=== PATIENT | male | born 1970 | race Caucasian/White ===

== ENCOUNTER 2017-04-21 20:29 | Emergency (ER) | payer OTHER ==
[2017-04-21] MEDS ORDERED: Sodium Chloride 0.9% 2.5 ML Syringe FLUSH PRN (20:49)
[2017-04-21] MEDS ORDERED: Sodium Chloride 0.9% 10 ML Syringe FLUSH PRN (20:49)
[2017-04-21] MEDS ORDERED: Diphtheria,Pertussis(Acell),Tetanus Vaccine 0.5 ML Syringe IM ONE (20:50)
[2017-04-21] MEDS ORDERED: Ketorolac 30 MG/ML SDV IVPUSH ONE (20:50)
--- NOTE | 2017-04-21 20:55 | EDM.PDOC ---
ED HPI GENERAL MEDICAL PROBLEM - General Chief Complaint: Skin Complaint Stated Complaint: R LEG PAIN Time Seen by Provider: 04/21/17 20:38 - History of Present Illness INITIAL COMMENTS - FREE TEXT/NARRATIVE: HISTORY AND PHYSICAL: History of present illness: The patient is a 47-year-old male with no stated medical problems who presents with a 36 hour history of what he believes to be an ingrown hair at his right inner thigh that has since become infected and started draining. The patient states he noticed an irritation and redness in that area but it was not particular painful or swollen and he did not manipulate it. He says that it was gradually increasing in redness but there was no gross swelling or drainage.. Over the last 12 hours it has increased in redness and started draining this evening fluid and there is increased pain in the area. He has no bowel or bladder disturbances no pain or swelling in the testicles and no pain shooting down his right leg. He has no neurosensory changes in his leg and he has no other areas of redness or irritation on his skin elsewhere on the body. He has not had any systemic complaints such as fever abdominal pain nausea vomiting or diarrhea. He is unsure of his last tetanus shot. Review of systems: As per history of present illness and below otherwise all systems reviewed and negative. Past medical history: As per history of present illness and as reviewed below otherwise noncontributory. Surgical history: As per history of present illness and as reviewed below otherwise noncontributory. Social history: No reported history of drug or alcohol abuse. Family history: As per history of present illness and as reviewed below otherwise noncontributory. Physical exam: Gen.: Well-developed well-nourished man who is nontoxic and vital signs are noted by me. HEENT: Atraumatic, normocephalic, negative for conjunctival pallor or scleral icterus, mucous membranes moist, throat clear, neck supple, nontender, trachea midline. Lungs: Clear to auscultation, breath sounds equal bilaterally, chest nontender. Heart: S1S2, regular, negative for clicks, rubs, or JVD. Abdomen: Soft, nondistended, nontender. Negative for masses or hepatosplenomegaly. Negative for costovertebral tenderness. Pelvis: Stable nontender. Genitourinary: Testicles are descended bilaterally and there is no swelling erythema or tenderness of the testicles and the scrotal skin is without erythema or induration. In the perineum there is no extension of this erythema from the inner thigh and there are no lesions seen. At the inguinal area on the right side there is a diffuse area of well-defined pink erythema and warmth that measures approximately 20 x 18 cm extending down the medial thigh and more proximally right at the inguinal line there is a 9 x 5 area of hardened induration with a eschar-like wound at its center. There is no fluctuance in this area and no gross drainage appreciated on palpation but there is some drainage seen on the patient's underwear. This lesion is situated exactly where the edge of his underwear/briefs sit. There is some shoddy inguinal adenopathy the entire area is very well demarcated and does not extend proximally. It also does not extend medially into the perineum. There is tenderness with this exam but no gross drainage even with firm palpation. Rectal: Deferred. Extremities: Atraumatic, negative for cords or calf pain. Neurovascular unremarkable. Neuro: Awake, alert, oriented. Cranial nerves II through XII unremarkable. Cerebellum unremarkable. Motor and sensory unremarkable throughout. Exam nonfocal. Diagnostics: CBC soft tissue ultrasound of inner thigh Therapeutics: IV vancomycin Toradol Tdap Bruin I discussed all testing results with the patient and that the ultrasound did not reveal any fluid that needs drainage. I strongly advised him to continue monitoring the area and I have marked it with a surgical marker. I will give him prescriptions for Bactrim Bruin to use as needed and Bactroban and he would prefer to fill those at the pharmacy tomorrow. Impression: Right inguinal/inner thigh cellulitis with abscess and spontaneous drainage Definitive disposition and diagnosis as appropriate pending reevaluation and review of above. right thigh Pain Score (Numeric/FACES): 5 - Related Data Allergies Allergy/AdvReac Type Severity Reaction Status Date / Time No Known Allergies Allergy Verified 04/21/17 20:43 Home Meds: Home Meds . [No Known Home Meds] 07/17/14 [History] Past Medical History - Past Health History Medical/Surgical History: Denies Medical/Surgical History Social & Family History - Tobacco Use Smoking Status *Q: Current Every Day Smoker Years of Tobacco use: 30 - Alcohol Use Days Per Week of Alcohol Use: 1 Number of Drinks Per Day: 1 Total Drinks Per Week: 1 - Recreational Drug Use Recreational Drug Use: No ED ROS GENERAL - Review of Systems Review Of Systems: ROS reveals no pertinent complaints other than HPI. ED EXAM, SKIN/RASH Exam: See Below (See dictation) Course - Vital Signs Last Recorded V/S: Last Vital Signs Temp 36.3 C 04/21/17 20:44 Pulse 118 H 04/21/17 20:44 Resp 18 04/21/17 20:44 BP 128/75 04/21/17 20:44 Pulse Ox 94 L 04/21/17 20:44 - Orders/Labs/Meds Orders: Active Orders 24 hr Category Date Time Status Vaccines to be Administered [RC] PER UNIT ROUTINE Care 04/21/17 20:50 Active Extremity Non Vascular Rt [US] Stat Exams 04/21/17 20:49 Taken Acetaminophen/HYDROcodone [Bruin 325-7.5 MG] Med 04/21/17 21:44 Once 1 tab PO ONETIME ONE Sodium Chloride 0.9% [Saline Flush] Med 04/21/17 20:49 Active 10 ml FLUSH ASDIRECTED PRN Sodium Chloride 0.9% [Saline Flush] Med 04/21/17 20:49 Active 2.5 ml FLUSH ASDIRECTED PRN Vancomycin [Vancocin] 1 gm Med 04/21/17 20:50 Active Sodium Chloride 0.9% [Normal Saline] 250 ml IV ONETIME Saline Lock Insert [OM.PC] Stat Oth 04/21/17 20:49 Ordered Medication Orders Vancomycin HCl 1 gm/ Sodium (Chloride) 250 mls @ 250 mls/hr IV ONETIME ONE Stop: 04/21/17 21:49 Last Admin: 04/21/17 21:41 Dose: 250 mls/hr Sodium Chloride (Saline Flush) 10 ml FLUSH ASDIRECTED PRN PRN Reason: Keep Vein Open Last Admin: 04/21/17 21:41 Dose: 10 ml Sodium Chloride (Saline Flush) 2.5 ml FLUSH ASDIRECTED PRN PRN Reason: Keep Vein Open Last Admin: 04/21/17 21:41 Dose: 2.5 ml Labs: Laboratory Tests 04/21/17 Range/Units 20:58 WBC 10.67 (4.0-11.0) K/uL RBC 5.34 (4.50-5.90) M/uL Hgb 17.3 H (13.0-17.0) g/dL Hct 46.6 (38.0-50.0) % MCV 87.3 (80.0-98.0) fL MCH 32.4 H (27.0-32.0) pg MCHC 37.1 H (31.0-37.0) g/dL RDW Std Deviation 40.1 (28.0-62.0) fl RDW Coeff of Franky 13 (11.0-15.0) % Plt Count 235 (150-400) K/uL MPV 10.40 (7.40-12.00) fL Neut % (Auto) 67.4 (48.0-80.0) % Lymph % (Auto) 17.3 (16.0-40.0) % Porter % (Auto) 14.6 (0.0-15.0) % Eos % (Auto) 0.3 (0.0-7.0) % Baso % (Auto) 0.4 (0.0-1.5) % Neut # (Auto) 7.2 H (1.4-5.7) K/uL Lymph # (Auto) 1.9 (0.6-2.4) K/uL Porter # (Auto) 1.6 H (0.0-0.8) K/uL Eos # (Auto) 0.0 (0.0-0.7) K/uL Baso # (Auto) 0.0 (0.0-0.1) K/uL Nucleated RBC % 0.0 /100WBC Nucleated RBCs # 0 K/uL Meds: Medications Generic Name Dose Route Start Last Admin Trade Name Freq PRN Reason Stop Dose Admin Vancomycin HCl 1 gm/ Sodium 250 mls @ 250 mls/hr 04/21/17 20:50 04/21/17 21: 41 Chloride IV 04/21/17 21:49 250 mls/hr ONETIME ONE Administration Sodium Chloride 10 ml 04/21/17 20:49 04/21/17 21:41 Saline Flush FLUSH 10 ml ASDIRECTED PRN Administration Keep Vein Open Sodium Chloride 2.5 ml 04/21/17 20:49 04/21/17 21:41 Saline Flush FLUSH 2.5 ml ASDIRECTED PRN Administration Keep Vein Open Discontinued Medications Generic Name Dose Route Start Last Admin Trade Name Freq PRN Reason Stop Dose Admin Diphtheria/Tetanus/Acell Pertussis 0.5 ml 04/21/17 20:50 Adacel IM 04/21/17 20:51 .ONCE ONE Ketorolac Tromethamine 30 mg 04/21/17 20:50 04/21/17 21:41 Toradol IVPUSH 04/21/17 20:51 30 mg ONETIME ONE Administration Ketorolac Tromethamine Confirm 04/21/17 21:30 04/21/17 21:42 Toradol Administered 04/21/17 21:31 Not Given Dose 30 mg .ROUTE .STK-MED ONE Departure - Departure Time of Disposition: 21:46 Disposition: Home, Self-Care 01 Condition: Good Clinical Impression: Abscess Cellulitis Qualifiers: Site of cellulitis: unspecified site Qualified Code(s): L03.90 - Cellulitis, unspecified - Discharge Information Referrals: PCP,None [Primary Care Provider] - Forms: ED Department Discharge Additional Instructions: The following information is given to patients seen in the emergency department who are being discharged to home. This information is to outline your options for follow-up care. We provide all patients seen in our emergency department with a follow-up referral. The need for follow-up, as well as the timing and circumstances, are variable depending upon the specifics of your emergency department visit. If you don't have a primary care physician on staff, we will provide you with a referral. We always advise you to contact your personal physician following an emergency department visit to inform them of the circumstance of the visit and for follow-up with them and/or the need for any referrals to a consulting specialist. The emergency department will also refer you to a specialist when appropriate. This referral assures that you have the opportunity for followup care with a specialist. All of these measure are taken in an effort to provide you with optimal care, which includes your followup. Under all circumstances we always encourage you to contact your private physician who remains a resource for coordinating your care. When calling for followup care, please make the office aware that this follow-up is from your recent emergency room visit. If for any reason you are refused follow-up, please contact the [facility] emergency department at and ask to speak to the emergency department charge nurse. [facility] Primary care- Internal Medicine and [facility] [address] [place] [id number] Please cleanse the area with mild soap and water and pat dry. Apply Bactroban you have been prescribed 2-3 times a day. Take Intermedics until they're finished. Use [id number] Tylenol or ibuprofen for pain and is stronger pain medications when you are at home. Please call and follow-up with one of our providers in the clinic next week for further care and evaluation and return to ER as needed and as discussed. Please try to leave open to air as much as possible - My Orders Last 24 Hours: My Active Orders 04/21/17 20:49 Extremity Non Vascular Rt [US] Stat Sodium Chloride 0.9% [Saline Flush] 10 ml FLUSH ASDIRECTED PRN Sodium Chloride 0.9% [Saline Flush] 2.5 ml FLUSH ASDIRECTED PRN Saline Lock Insert [OM.PC] Stat 04/21/17 20:50 Vaccines to be Administered [RC] PER UNIT ROUTINE Vancomycin [Vancocin] 1 gm Sodium Chloride 0.9% [Normal Saline] 250 ml IV ONETIME 04/21/17 21:44 Acetaminophen/HYDROcodone [Bruin 325-7.5 MG] 1 tab PO ONETIME ONE - Assessment/Plan Last 24 Hours: My Active Orders 04/21/17 20:49 Extremity Non Vascular Rt [US] Stat Sodium Chloride 0.9% [Saline Flush] 10 ml FLUSH ASDIRECTED PRN Sodium Chloride 0.9% [Saline Flush] 2.5 ml FLUSH ASDIRECTED PRN Saline Lock Insert [OM.PC] Stat 04/21/17 20:50 Vaccines to be Administered [RC] PER UNIT ROUTINE Vancomycin [Vancocin] 1 gm Sodium Chloride 0.9% [Normal Saline] 250 ml IV ONETIME 04/21/17 21:44 Acetaminophen/HYDROcodone [Bruin 325-7.5 MG] 1 tab PO ONETIME ONE
[2017-04-21] MEDS ORDERED: Ketorolac 30 MG/ML SDV ONE (21:30)
[2017-04-21] MEDS ORDERED: Acetaminophen/HYDROcodone 325-7.5 MG Tab PO ONE (21:44)
[2017-04-21 22:57] VITALS: BP 129/81
--- NOTE | 2017-04-24 10:44 | US ---
EXAM DATE: 04/21/17 PATIENT'S AGE: 47 Patient: WILBER GREGORY Facility: [place], [place] Site . Site : 1970 Study: US Extremity Right [id number]/[id number] 9:33:39 PM Ordering Physician: Genny Espinoza Final Report: INDICATION: Edematous and erythematous area in the right thigh TECHNIQUE: Ultrasound right lower extremity limited. Sonographic images of the right inner thigh were obtained using sullivan-scale and color Doppler images. COMPARISON: None FINDINGS/IMPRESSION: : Focused sonographic imaging of the upper inner area of the right thigh demonstrates edematous tissue but no focal mass or abscess. Dictated by Sunshine Gregory MD @ Apr 21 2017 9:38PM (Electronic Signature) Report Signed by Proxy. MARLON
== END 2017-04-21 22:49 | disposition home or self-care (01) ==
LOC: MW.ED 20:29
DX: L03.115 Cellulitis of right lower limb (principal); L02.415 Cutaneous abscess of right lower limb; F17.210 Nicotine dependence, cigarettes, uncomplicated; Z23 Encounter for immunization
CPT/HCPCS: 36415; 76881; 85025; 90471; 90715; 96365; 96375; 99284; A9270; J1885; J3370; J7050

== ENCOUNTER 2020-07-01 05:19 | Emergency (ER) | payer OTHER ==
--- NOTE | 2020-07-01 05:36 | EDM.PDOC ---
ED HPI GENERAL MEDICAL PROBLEM - General Chief Complaint: General Stated Complaint: MEDICAL CLEARANCE Time Seen by Provider: 07/01/20 05:34 - History of Present Illness INITIAL COMMENTS - FREE TEXT/NARRATIVE: HISTORY AND PHYSICAL: History of present illness: This is a 50-year-old gentleman with history significant for diabetes on Metformin who presents ER today for medical clearance by law enforcement. Patient denies any symptomatology. Patient has any recent fevers, shakes, chills, nausea, vomiting, diarrhea. Review of systems: As per history of present illness and below otherwise all systems reviewed and negative. Past medical history: As per history of present illness and as reviewed below otherwise noncontributory. Surgical history: As per history of present illness and as reviewed below otherwise noncontr ibutory. Social history: No reported history of drug abuse. Family history: As per history of present illness and as reviewed below otherwise noncontributory. Physical exam: This patient was seen and evaluated during the 2019 SARS-CoV-2 novel coronavirus pandemic period. Community viral transmission is ongoing at time of this encounter and the emergency department is operating under pandemic response procedures. Constitutional: Patient is oriented to person, place, and time. Appears well- developed and well-nourished. No distress. HEENT: Moist mucous membranes Head: Normocephalic and atraumatic Eyes: Right eye exhibits no discharge. Left eye exhibits no discharge. No scleral icterus Neck: Normal range of motion. No tracheal deviation present. Cardiovascular: Normal rate and regular rhythm. Pulmonary: Effort normal, no respiratory distress. Abdominal: No distention Musculoskeletal: Normal range of motion Neurologic: Alert and oriented to person, place and time. Skin: [place], warm and dry. Psychiatric: Normal mood and affect. Behavior is normal. Judgment and thought content normal. Nursing note and vital signs have been reviewed Diagnostics: [] Therapeutics: [] Assessment and plan: 50-year-old gentleman here by law enforcement for medical clearance prior to incarceration secondary to history of diabetes and on Metformin. Patient is clinically hemodynamic stable with no acute issues at this time. Patient will be discharged to custody of law enforcement with instructions to return to the ER if he has any new or concerning symptoms that might develop. Reassessment at the time of disposition demonstrates that the patient is in no acute distress. The patient has remained stable throughout the entire ED visit and is without objective evidence for acute process requiring urgent intervention or hospitalization. The patient is stable for discharge, counseling is provided as documented above, discussed symptomatic treatment and specific conditions for return. I have spoken with the patient/caregiver and discussed todays findings, in addition to providing specific details for the plan of care. Questions are answered and there is agreement with the plan. Definitive disposition and diagnosis as appropriate pending reevaluation and review of above. - Related Data Allergies Allergy/AdvReac Type Severity Reaction Status Date / Time No Known Allergies Allergy Verified 07/01/20 05:32 Home Meds: Home Meds metFORMIN HCl [Metformin HCl] 500 mg PO 07/01/20 [History] Past Medical History - Past Health History Medical/Surgical History: Denies Medical/Surgical History HEENT History: Reports: None Cardiovascular History: Reports: None Respiratory History: Reports: None Gastrointestinal History: Reports: None Genitourinary History: Reports: None Musculoskeletal History: Reports: Other (See Below) Other Musculoskeletal History: surgery on L4 and L5 Neurological History: Reports: None Psychiatric History: Reports: None Endocrine/Metabolic History: Reports: None Hematologic History: Reports: None Oncologic (Cancer) History: Reports: None Dermatologic History: Reports: None - Infectious Disease History Infectious Disease History: Reports: Chicken Pox Social & Family History - Family History Family Medical History: No Pertinent Family History ED ROS GENERAL - Review of Systems Review Of Systems: See Below ED EXAM, GENERAL - Physical Exam Exam: See Below Course - Orders/Labs/Meds Orders: Active Orders 24 hr Category Date Time Status Blood Glucose Check, Bedside [RC] ONETIME Care 07/01/20 05:30 Active Departure - Departure Time of Disposition: 05:35 Disposition: DC/Tfer to Court of Law En 21 Condition: Good Clinical Impression: Type 2 diabetes mellitus, Medical clearance for incarceration - Discharge Information Instructions: Type 2 Diabetes Mellitus, Diagnosis, Adult, Medical Screening Exam Referrals: PCP,None [Primary Care Provider] - Additional Instructions: Continue all your home medications. Return to the ER if you have any new or concerning symptoms. The following information is given to patients seen in the emergency department who are being discharged to home. This information is to outline your options for follow-up care. We provide all patients seen in our emergency department with a follow-up referral. The need for follow-up, as well as the timing and circumstances, are variable depending upon the specifics of your emergency department visit. If you don't have a primary care physician on staff, we will provide you with a referral. We always advise you to contact your personal physician following an emergency department visit to inform them of the circumstance of the visit and for follow-up with them and/or the need for any referrals to a consulting specialist. The emergency department will also refer you to a specialist when appropriate. This referral assures that you have the opportunity for follow-up care with a specialist. All of these measure are taken in an effort to provide you with optimal care, which includes your follow-up. Under all circumstances we always encourage you to contact your private physician who remains a resource for coordinating your care. When calling for follow-up care, please make the office aware that this follow-up is from your recent emergency room visit. If for any reason you are refused follow-up, please contact the [facility] Emergency Department at and asked to speak to the emergency department charge nurse. [facility] - Primary Care [address] [place] [address] [id number] [address] [address] - My Orders Last 24 Hours: My Active Orders 07/01/20 05:30 Blood Glucose Check, Bedside [RC] ONETIME - Assessment/Plan Last 24 Hours: My Active Orders 07/01/20 05:30 Blood Glucose Check, Bedside [RC] ONETIME
[2020-07-01 05:43] VITALS: BP 136/90; PULSE 88
== END 2020-07-01 05:41 ==
LOC: MW.ED 05:19
DX: E11.9 Type 2 diabetes mellitus without complications (principal); Z79.84 Long term (current) use of oral hypoglycemic drugs
CPT/HCPCS: 82947; 99283